=== PATIENT | female | born 1990 | race Caucasian/White ===

== ENCOUNTER 2016-03-18 09:43 | Emergency (ER) | payer SELFPAY ==
[2016-03-18 10:09] VITALS: BMI 20.7
--- NOTE | 2016-03-18 11:44 | EDPRACDOC ---
- General Information Chief Complaint: Sore Throat Stated Complaint: TROUBLE SWALLOWING Time Seen by Provider: 03/18/16 10:45 Information Source: Patient Home Medications: Home Medications Amoxicillin Trihydrate [Amoxicillin] 500 mg PO TID #30 tab 03/18/16 Allergies/Adverse Reactions: Allergies Allergy/AdvReac Type Severity Reaction Status Date / Time No Known Allergies Allergy Verified 11/18/15 20:38 - History of Present Illness Onset: THIS AM HPI: C/o Body aches and fever x 3days, with sore throat and lip blisters starting this am. Med hx = none. Surgical hx = none. Sore Throat Symptoms: Reports: Pain, Hoarse White Spots Location: Reports: Lips, Pharynx Recent: Reports: None Relevant History of: Reports: None Pain Severity: Reports: Moderate Urinary Output: Normal Oral Intake: Decreased Associated Signs and Symptoms: Reports: Chills, Earache ED Past Medical History - History Reviewed Yes Nurses notes reviewed and agree except as marked - Patient Medical History Psychological History: Denies: Depression Systemic History: Denies: Cancer, Anemia, Lupus Surgical History: Reports: Other (EAR SURGERY) - Family Medical History Reports: Hypertension, Diabetes, Cancer, Stroke. Denies: Cardiac Disorders - Social Medical History Smoking Status: Heavy tobacco smoker (5 or more cigarettes/day or daily pipe/ cigar) EDM Review of Systems - Review of Systems ROS Negative Except as Marked: Yes All systems reviewed and were negative except as marked Ears: Pain Throat: Pain, Hoarseness Mouth: Other (lip blisters) - Physical Exam Constitutional: No apparent distress, Alert Oriented to: Time, Person, Place Last recorded Vital Signs: Last Vital Signs Temp 99.6 F 03/18/16 10:09 Pulse 122 H 03/18/16 10:09 Resp 18 03/18/16 10:09 BP 130/71 03/18/16 10:09 Pulse Ox 95 03/18/16 10:09 Oxygen Pulse Oxygen Saturation 95 O2 Device Room Air Oxygen Flow Rate Fraction of Inspired Oxygen ( FIO2) - HEENT Head: Normal Eye Exam: negative: Conjunctival Injection, Scleral Icterus Oropharynx: Exudate, Red Tympanic Membrane: Normal ENT EAC: Normal TMJ: Normal Nose: No Symptoms Reported Neck: Normal HEENT Comment: raised papules on lips - Respiratory/Cardiovascular Respiratory: Normal - CTA Cardiovascular: Normal - GI Tenderness: Non tender - Musculoskeletal Back: Normal Extremities: Normal - Integumentary Skin: Normal - Neurologic Mood Description: Normal Thought: Coherent Perception: Normal - Results Monoscreen Neg (NEGATIVE) 03/18/16 10:54 Microbiology 03/18/16 10:59 Group A Streptococcus Rapid Screen - Final Throat - Rapid Strep POSITIVE ("NORMAL" value = "NEGATIVE".) Lab Results 03/18/16 10:54 Monoscreen Neg Decision Time to Discharge: 11:42 - Departure Condition: Stable Final Diagnosis: Strep throat Instructions: Strep Throat (ED) Education/Counseling Given To: Patient Education/Counseling Given Regarding: Diagnosis, Treatment, Prognosis, Follow Up Referrals: Jose Canales MD [Primary Care Provider] - One Week Prescriptions: New Amoxicillin Trihydrate [Amoxicillin] 500 mg PO TID #30 tab Additional Instructions: Follow up with primary care. Return to ED for any new or worsening symptoms.
[2016-03-18 12:19] VITALS: BP 112/67; PULSE 108; TEMP 99.1
== END 2016-03-18 12:18 | disposition home or self-care (01) ==
LOC: ED 09:43
DX: J02.0 Streptococcal pharyngitis (principal)
CPT/HCPCS: 86308; 87880; 99283